=== PATIENT | male | born 1965 | race Caucasian/White ===

== ENCOUNTER 2022-02-18 22:33 | Emergency (ER) | payer BC, MEDICAID, MEDICARE, OTHER ==
[2022-02-18] MEDS ORDERED: Sodium Chloride 0.9% 10 ML Syringe FLUSH PRN (22:44)
[2022-02-18] MEDS ORDERED: Ondansetron 4 MG/2 ML SDV IVPUSH ONE (22:55)
[2022-02-18] MEDS ORDERED: Sodium Chloride 0.9% 1,000 ML IV ONE (22:56)
[2022-02-18 23:19] LABS: ANION GAP 9.2 mmol/L (5-15); CHLORIDE,CL 106 mmol/L (98-107); ESTIMATED GFR 103 mL/min (>=60); SODIUM,NA 142 mmol/L (136-145)
[2022-02-18] MEDS ORDERED: levETIRAcetam 500 MG Tab PO SCH (23:45)
[2022-02-19 02:24] VITALS: BP 114/76; PULSE 75
== END 2022-02-19 00:21 | disposition home or self-care (01) ==
LOC: KA.ED 22:33
DX: R55 Syncope and collapse (principal); G40.909 Epilepsy, unspecified, not intractable, without status epilepticus; J44.9 Chronic obstructive pulmonary disease, unspecified; F10.129 Alcohol abuse with intoxication, unspecified; F17.210 Nicotine dependence, cigarettes, uncomplicated; Z88.8 Allergy status to other drugs, medicaments and biological substances; Z88.2 Allergy status to sulfonamides; Z88.4 Allergy status to anesthetic agent; Z79.899 Other long term (current) drug therapy; Z20.822 Contact with and (suspected) exposure to COVID-19
CPT/HCPCS: 36415; 80053; 80177; 80307; 84484; 85025; 86140; 93005; 93010; 96361; 96374; 99284; 99284-25; A9270-GY; J2405; J3490; J7030; U0002